=== PATIENT | male | born 1980 | race Caucasian/White ===

== ENCOUNTER 2019-06-06 05:25 | Emergency (ER) | payer BC ==
[~2019-06-06] VITALS: Ht 180.3 cm; Wt 80.3 kg
[2019-06-06 05:56] LABS: BASOPHILS % (AUTO) 0.8 % (0.0-2.0); EOSINOPHILS % (AUTO) 5.4 % (0.0-6.0); HEMATOCRIT 46 % (39-51); HEMOGLOBIN 15.7 g/dL (13.5-17.5); LYMPHOCYTES % (AUTO) 39.8 % (20.0-44.0); MEAN CORPUSCULAR HGB CONC 34 g/dl (31.0-36.0); MEAN CORPUSCULAR VOLUME 88 fL (80-96); MONOCYTES # (AUTO) 0.4 /CMM (0.1-1.30); MONOCYTES % (AUTO) 8.1 % (2.0-12.0); NEUTROPHILS # (AUTO) 2.3 /CMM (1.8-8.9); NEUTROPHILS % (AUTO) 45.9 % (43.0-81.0); PLATELET COUNT (AUTO) 201 /CMM (150-450)
[2019-06-06 06:03] LABS: CALCIUM, SERUM 8.8 mg/dL (8.5-10.1); CARBON DIOXIDE 30 mmol/L (21-32); CHLORIDE 105 mmol/L (98-107); CREATININE 1.1 mg/dL (0.6-1.3); GLUCOSE 103 mg/dL (74-106); POTASSIUM 4.2 mmol/L (3.5-5.1); SODIUM SERUM 141 mmol/L (136-145); UREA NITROGEN, BLOOD 14 mg/dL (7-18)
--- NOTE | 2019-06-06 06:15 | NUR ---
PT BIB SELF FOR NON SPECIFIC INTERMITTENT CHEST PAIN, PT IS AWAKE ALERT ORIENTED X4, RESPIRATIONS EVEN NON LABORED.
[2019-06-06 06:49] VITALS: BP 117/85
== END 2019-06-06 06:54 | disposition home or self-care (01) ==
LOC: ER 05:29
DX: R07.89 Other chest pain (principal)
CPT/HCPCS: 36415; 71045-TC; 80048-TC; 84484-TC; 85025-TC